=== PATIENT | male | born 1930 | race Caucasian/White ===

== ENCOUNTER 2017-04-07 12:02 | Outpatient (CLI) | payer OTHER ==
--- NOTE | 2017-04-07 13:25 | RAD ---
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 COMPARISON: None. FINDINGS: There are large bilateral pleural effusions, larger on the left, which are layering. There is compre ssive atelectasis in both lung bases. The heart size is enlarged. Dense calcifications of the aorta. No acute osseous abnormality. IMPRESSION: Large layering pleural effusions, larger on the left than the right, with compressive atelectasis in the lung bases. Thoracentesis may be beneficial. POS: [facility]
== END 2017-04-07 12:03 | disposition home or self-care (01) ==
LOC: RAD 12:02
PROVIDERS: ATTEND Thoracic Surgery (Cardiothoracic Vascular Surgery)
DX: I25.111 Atherosclerotic heart disease of native coronary artery with angina pectoris with documented spasm (principal); J90 Pleural effusion, not elsewhere classified; J98.11 Atelectasis
CPT/HCPCS: 71046

== ENCOUNTER 2017-05-06 10:35 | Outpatient (CLI) | payer OTHER ==
--- NOTE | 2017-05-06 12:47 | RAD ---
TWO VIEWS CHEST: DATE: 05/06/17. PROVIDED CLINICAL HISTORY: Heart disease. FINDINGS: Comparison 04/07/17. Cardiac and mediastinum silhouette has not definitely changed in appearance. Th ere are portions remaining obscured by bibasilar pleural parenchymal opacity. The degree of left bas ilar parenchymal opacity appears slightly less conspicuous than on the prior study. Atherosclerosis and median sternotomy changes are redemonstrated. Passive atelectasis is seen at each lung base. Th e lungs appear otherwise clear. IMPRESSION: Cardiomegaly and persistent bibasilar pleural and/or parenchymal opacity. This appears less conspicu ous to the left of midline. POS: [facility]
== END 2017-05-06 10:36 | disposition home or self-care (01) ==
LOC: RAD 10:35
PROVIDERS: ATTEND Thoracic Surgery (Cardiothoracic Vascular Surgery)
DX: I25.111 Atherosclerotic heart disease of native coronary artery with angina pectoris with documented spasm (principal); I51.7 Cardiomegaly
CPT/HCPCS: 71046

== ENCOUNTER 2017-05-27 11:42 | Outpatient (CLI) | payer OTHER ==
--- NOTE | 2017-05-27 14:04 | RAD ---
CHEST PA AND LATERAL: Date: 05/27/17 HISTORY: 86-year-old male with history of dyspnea. COMPARISON: 05/06/17. FINDINGS: Postop midline sternotomy. Small to moderate bilateral pleural effusions, noted bilaterally. These ap pear to be probably slightly improved from the 05/06/17 study. IMPRESSION: Persistent but probably slightly improved bilateral pleural effusions, slightly greater on the left s edward when compared to the most recent 05/06/17 study. No other new process. POS: [facility]
== END 2017-05-27 11:43 | disposition home or self-care (01) ==
LOC: RAD 11:42
PROVIDERS: ATTEND Internal Medicine Cardiovascular Disease
DX: J90 Pleural effusion, not elsewhere classified (principal)
CPT/HCPCS: 71046

== ENCOUNTER 2017-06-10 06:33 | Day surgery (SDC) | payer OTHER ==
[2017-06-09 12:37] VITALS: BMI 24.3
--- NOTE | 2017-06-10 11:48 | OP ---
DATE OF PROCEDURE: 06/10/2017 INDICATION FOR PROCEDURE: An 86-year-old patient with a history of coronary artery disease, status p ost bypass surgery and atrial fibrillation. He has been placed on amiodarone. He has also been on l marlon-term Eliquis. He was advised to undergo a cardioversion of his symptomatic atrial fibrillation. He has had shortness of breath and also has a pleural effusion which has been chronic and he has bee n diuresing, but still continues to have small pleural effusions. He was advised to undergo electric al cardioversion. The ejection fraction was about 40%. It was felt that perhaps ejection fraction w ould improve if he had maintained sinus rhythm. He was taken to the recovery area where he underwent short acting propofol. Using one attempt at 200 joules he was successfully converted back to a normal sinus rhythm with a heart rate in the 20s and a first degree AV heart block. Otherwise, he tolerated the procedure well without difficulties or co mplications.
--- NOTE | 2017-06-10 13:45 | DIS ---
DATE OF PROCEDURE: 06/10/2017 INDICATION FOR PROCEDURE: An 86-year-old patient with atrial fibrillation postoperative after a rafael nary artery bypass grafting. He also has a history of hypertension and bilateral pleural effusions w ith hypercholesterolemia. He has been in atrial fibrillation. We would attempt to convert him back to sinus rhythm to get better, left atrial kick to improve his left ventricular systolic function whi ch has been decreased on echocardiogram around 40% after his bypass surgery. His other diagnoses inc lude gastroesophageal reflux disease, peripheral vascular disease, status post bypass surgery, chroni c renal insufficiency, hypertension, and hyperlipidemia. DISCHARGE DIAGNOSES: Gastroesophageal reflux disease, peripheral vascular disease, status post bypas s surgery, chronic renal insufficiency, hypertension, and hyperlipidemia. PROCEDURE IN HOSPITAL: Included electrocardioversion of atrial fibrillation back to sinus rhythm. DISCHARGE MEDICATIONS: Include ranitidine 150 mg b.i.d., Eliquis 2.5 mg b.i.d., Coreg 12.5 mg half a tablet b.i.d., amiodarone 200 mg 1 daily, tamsulosin 0.4 mg 1 tablet half an hour after each meal, p otassium 20 mEq every day, atorvastatin 80 mg daily, and furosemide 40 mg 2 tablets q.a.m. and 1 tabl et q.p.m. FOLLOWUP: His followup will be with me in the office in the next 2-4 weeks. HOSPITAL COURSE: This very pleasant gentleman who is 86 years old and recently undergone bypass surg yamileth and after the surgery, he developed atrial fibrillation. He had been placed on amiodarone and El iquis, and he has been maintained on that. During the surgical procedure, his left atrial appendage was ligated. He has continued to have shortness of breath and fatigue and due to the mild to moderat e decrease in left ventricular systolic function, it was felt that he would best be served at this ti me to undergo electrocardioversion of atrial fibrillation to see if his overall ejection fraction sym ptoms would improve. He was taken to recovery area where he underwent the procedure today with one a ttempt at 200 joules and he was successfully converted back to sinus rhythm with a heart rate in the 60s. There were no difficulties or complications encountered. If he remains stable, he will be disc harged home in the next 1-2 hours and I will see him back in the next 2-4 weeks.
== END 2017-06-10 09:39 | disposition home or self-care (01) ==
LOC: CCL 06:33
PROVIDERS: ATTEND Internal Medicine Cardiovascular Disease
PROC: 5A2204Z Restoration of Cardiac Rhythm, Single (ICD-10-PCS; principal; 2017-06-10)
DX: I97.89 Other postprocedural complications and disorders of the circulatory system, not elsewhere classified (principal); I48.0 Paroxysmal atrial fibrillation; I25.10 Atherosclerotic heart disease of native coronary artery without angina pectoris; J90 Pleural effusion, not elsewhere classified; I44.0 Atrioventricular block, first degree; E78.00 Pure hypercholesterolemia, unspecified; I12.9 Hypertensive chronic kidney disease with stage 1 through stage 4 chronic kidney disease, or unspecified chronic kidney disease; N18.9 Chronic kidney disease, unspecified; K21.9 Gastro-esophageal reflux disease without esophagitis; I73.9 Peripheral vascular disease, unspecified; E78.2 Mixed hyperlipidemia; Z79.899 Other long term (current) drug therapy; Z79.01 Long term (current) use of anticoagulants; Z95.1 Presence of aortocoronary bypass graft
CPT/HCPCS: 92960; 93005; 93010

== ENCOUNTER 2017-06-24 13:17 | Outpatient (CLI) | payer OTHER ==
--- NOTE | 2017-06-24 14:22 | RAD ---
2 VIEWS CHEST: Date: 06/24/17 COMPARISON: 05/27/17. HISTORY: Shortness of breath. Disorder of the kidneys and ureter. FINDINGS: Two views of the chest show an enlarged but stable cardiomediastinal silhouette. There are bilateral pleural effusions, left greater than right. No infiltrates are seen. Degenerative changes are seen in the spine. IMPRESSION: Bilateral pleural effusions. POS: [facility]
== END 2017-06-24 13:18 | disposition home or self-care (01) ==
LOC: RAD 13:17
PROVIDERS: ATTEND Internal Medicine Cardiovascular Disease
DX: R06.02 Shortness of breath (principal); N28.9 Disorder of kidney and ureter, unspecified; J90 Pleural effusion, not elsewhere classified
CPT/HCPCS: 71046